=== PATIENT | female | born 1965 | race Caucasian/White ===

== ENCOUNTER 2016-05-23 11:33 | Day surgery (SDC) | payer BC ==
[~2016-05-23] VITALS: Ht 139.7 cm; Wt 69.3 kg
[2016-05-23] MEDS ORDERED: LISINOPRIL (12:24)
[2016-05-23] MEDS ORDERED: FERROUS SULFATE (12:24)
[2016-05-23] MEDS ORDERED: ZANTAC (12:24)
[2016-05-23] MEDS ORDERED: OMEPRAZOLE (12:24)
[2016-05-23] MEDS ORDERED: COLACE (12:24)
[2016-05-23 12:25] VITALS: Ht 139.7 cm; Wt 69.3 kg
[2016-05-23 12:52] VITALS: BP 144/89; PULSE 73; RESP 18
[2016-05-23] MEDS ORDERED: MIDAZOLAM 1 MG/ML 2 ML INJ ONE ×3 (13:23→13:24)
[2016-05-23] MEDS ORDERED: FENTAnyl 50 MCG/ML VIAL ONE (13:24)
[2016-05-23 13:50] VITALS: BP 102/72; PULSE 81; RESP 18
--- NOTE | 2016-05-23 16:48 | GILP ---
DATE OF PROCEDURE: 05/23/2016 NAME OF PROCEDURES: 1. Esophagogastroduodenoscopy and biopsy. 2. Colonoscopy and polypectomy. SURGEON: Edgar Fuentes MD PREOPERATIVE DIAGNOSES: 1. Iron deficiency anemia. 2. Abdominal pain. POSTOPERATIVE DIAGNOSES: 1. Gastritis. 2. Gastric mucosal biopsies were taken for Helicobacter pylori test. 3. Small bowel biopsies were taken to rule out celiac disease. 4. Colonoscopy all the way to the cecum. 5. Sigmoid colon polyp at 23 cm from the anus was removed using the snare and electrocautery. 6. Internal and external hemorrhoids. INDICATION FOR THE PROCEDURE: Ms. Kailee Townsend is a 50-year-old female patient who had upper abdomin al pain, not responding to therapy. She was also noted to have iron deficiency anemia. She never h ad screening colonoscopy. The patient was scheduled for endoscopy and colonoscopy for further evalu ation. The procedures and possible complications were well explained to the patient. She understood and co nsented to the procedure. DESCRIPTION OF PROCEDURE: Under the influence of fentanyl and Versed, the gastroscope was carefully introduced into the esophagus, and under direct vision, it was advanced to the stomach and through the pylorus into the duodenal bulb and descending duodenum. FINDINGS: ESOPHAGUS: The mucosa was normal. STOMACH: The patient had gastritis. Gastric mucosal biopsies were taken for H. pylori test. DUODENUM: Small bowel biopsies were taken to rule out celiac disease. Duodenum was normal. The colonoscope was carefully introduced in the rectum, and under direct vision, it was advanced all the way to the cecum. FINDINGS: The patient was noted to have a polyp in the sigmoid colon, and it was removed using the snare and electrocautery. She also had internal and external hemorrhoids. She tolerated the procedures very well, and there was no complication from the procedures. At the e nd of the procedures, she was awake with stable vital signs, and she was discharged home to the care of her family. IMPRESSION: 1. Gastritis. 2. Gastric mucosal biopsies were taken for Helicobacter pylori test. 3. Small bowel biopsies were taken to rule out celiac disease. 4. Colonoscopy all the way to the cecum. 5. Sigmoid colon polyp was removed using the snare and electrocautery. 6. Internal and external hemorrhoids. PLAN: 1. Continue omeprazole and Zantac. 2. Await histopathology reports. 3. The patient will need followup colonoscopy in 5 years. Dictated By: EDGAR GARZON/MICKEY Conf#: [id number] DID#: [id number]
== END 2016-05-23 16:24 | disposition home or self-care (01) ==
LOC: GIL 11:33
PROVIDERS: ATTEND Internal Medicine Gastroenterology
DX: D12.5 Benign neoplasm of sigmoid colon (principal); K29.70 Gastritis, unspecified, without bleeding; K64.8 Other hemorrhoids; K64.4 Residual hemorrhoidal skin tags; D50.9 Iron deficiency anemia, unspecified; I10 Essential (primary) hypertension
CPT/HCPCS: 43239; 45385; 87081; 88305; J2250; J3010; Z7610